=== PATIENT | female | born 1945 | race Two or more races ===

== ENCOUNTER 2016-04-14 17:20 | Inpatient (IN) | payer SELFPAY ==
[~2016-04-14] VITALS: Ht 165.1 cm; Wt 55.8 kg
[2016-04-14] MEDS ORDERED: ENOXAPARIN SOD 100 MG/1 ML SYRINGE SC ONE (19:00)
[2016-04-14 19:43] LABS: Basophils # (auto) 0.1 uL; Basophils % (auto) 0.5 % (0.0-2.0); Eosinophils # (auto) 0.1 uL; Eosinophils % (auto) 0.7 % (0.0-7.0); Hemoglobin 12.9 g/dL (12.2-16.2); Lymphocytes # (auto) 1.4 uL; Lymphocytes % (auto) 12.6 % (10.0-50.0); Mean Corpuscular Hemoglobin 29.8 pg (28.0-32.0); Mean Corpuscular Hgb Conc. 33.1 g/dL (32.0-36.0); Mean Platelet Volume 7.9 fL (7.4-10.4); Monocytes % (auto) 8.9 % (0.0-12.0); Neutrophils # (auto) 8.3 uL; Neutrophils % (auto) 77.3 % (37.0-80.0); Platelet Count (auto) 449 10^3/uL (140-450); Red Cell Distribution Width 12.8 % (11.6-16.0); White Blood Cell 10.7 10^3/uL (4.4-10.8)
[2016-04-14 20:00] LABS: BUN/Creatinine Ratio 21.7; Calcium 9.4 mg/dL (8.5-10.1)
[2016-04-14 20:13] LABS: INR 0.99 (0.9-1.15); Partial Thromboplastin Time 29.2 sec (22.64-33.71); Prothrombin Time 10.2 sec (9.37-12.3)
[2016-04-15] VITALS (7 sets, daily range): BP systolic 97–116; BP diastolic 52–72
[2016-04-15] MEDS ORDERED: TEMAZEPAM 15 MG CAP PO PRN
[2016-04-15] MEDS ORDERED: HYDROcodone-ACET 5/325MG TAB PO PRN
[2016-04-15] MEDS ORDERED: DOCUSATE SOD 100 MG CAP PO PRN
[2016-04-15] MEDS ORDERED: MORPHINE SULF INJ 2 MG/ML SYRINGE 1ML IV PRN
[2016-04-15] MEDS ORDERED: ACETAMINOPHEN 325 MG TAB PO PRN
[2016-04-15] MEDS ORDERED: ONDANSETRON HCL 4 MG/2 ML VIAL IV PRN
[2016-04-15] MEDS ORDERED: LEVO100T8 PO (01:51)
[2016-04-15] MEDS ORDERED: INFLUENZA QUAD 2016-2017 0.5 ML SYRG IM ONE (02:30)
[2016-04-15 05:19] LABS: Basophils # (auto) 0 uL; Basophils % (auto) 0.4 % (0.0-2.0); Eosinophils # (auto) 0.1 uL; Eosinophils % (auto) 1.2 % (0.0-7.0); Hematocrit 39.3 % (36.0-46.0); Hemoglobin 13.1 g/dL (12.2-16.2); Lymphocytes # (auto) 1.4 uL; Lymphocytes % (auto) 16.1 % (10.0-50.0); Mean Corpuscular Hemoglobin 29.7 pg (28.0-32.0); Mean Corpuscular Hgb Conc. 33.4 g/dL (32.0-36.0); Mean Corpuscular Volume 88.9 fL (80.0-100.0); Monocytes # (auto) 0.7 uL; Monocytes % (auto) 8.1 % (0.0-12.0); Neutrophils # (auto) 6.3 uL; Neutrophils % (auto) 74.2 % (37.0-80.0); Platelet Count (auto) 479 10^3/uL (140-450); Red Cell Distribution Width 12.7 % (11.6-16.0); White Blood Cell 8.5 10^3/uL (4.4-10.8)
[2016-04-15 05:43] LABS: Albumin 2.8 g/dL (3.4-5.0); BUN/Creatinine Ratio 22.6; Bilirubin, Total 0.5 mg/dL (0.2-1.0); Calcium 9.8 mg/dL (8.5-10.1); Potassium 4.5 mmol/L (3.5-5.1); Total Protein 6.4 g/dL (6.4-8.2)
[2016-04-15] MEDS: LEVOTHYROXINE SODIUM 25 MCG TAB PO SCH (06:15)
[2016-04-15] MEDS: ENOXAPARIN SOD 60 MG/0.6 ML SYRINGE SC SCH ×2 (07:55→19:51)
[2016-04-15] MEDS: FAMOTIDINE 20 MG TAB PO SCH ×2 (09:21→21:50)
[2016-04-15] MEDS ORDERED: WARFARIN SODIUM 2.5 MG TAB PO ONE (17:00)
[2016-04-16 04:48] VITALS: BP 90/56
[2016-04-16 05:46] VITALS: BP 107/69
[2016-04-16] MEDS: LEVOTHYROXINE SODIUM 25 MCG TAB PO SCH (06:04)
[2016-04-16 06:41] LABS: INR 1.06 (0.9-1.15); Partial Thromboplastin Time 29.7 sec (22.64-33.71); Prothrombin Time 10.9 sec (9.37-12.3)
[2016-04-16 08:54] VITALS: BP 105/68
[2016-04-16] MEDS: FAMOTIDINE 20 MG TAB PO SCH ×2 (11:58→22:02)
[2016-04-16] MEDS: ENOXAPARIN SOD 60 MG/0.6 ML SYRINGE SC SCH ×2 (11:58→20:30)
[2016-04-16 13:00] VITALS: BP 117/69
[2016-04-16 17:00] VITALS: BP 105/67
[2016-04-16] MEDS ORDERED: WARFARIN SODIUM 2.5 MG TAB PO ONE (17:00)
[2016-04-16 21:45] VITALS: BP 106/68
[2016-04-17 05:00] VITALS: BP 104/55
[2016-04-17] MEDS: LEVOTHYROXINE SODIUM 25 MCG TAB PO SCH (06:10)
[2016-04-17 06:14] LABS: Partial Thromboplastin Time 31.8 sec (22.64-33.71)
[2016-04-17 06:15] LABS: INR 1.33 (0.9-1.15); Prothrombin Time 13.7 sec (9.37-12.3)
[2016-04-17 09:00] VITALS: BP 112/71
[2016-04-17] MEDS: ENOXAPARIN SOD 60 MG/0.6 ML SYRINGE SC SCH ×2 (10:23→20:05)
[2016-04-17] MEDS: FAMOTIDINE 20 MG TAB PO SCH ×2 (10:24→22:15)
[2016-04-17 13:00] VITALS: BP 100/62
[2016-04-17 16:35] VITALS: BP 105/61
[2016-04-17] MEDS ORDERED: WARFARIN SODIUM 2.5 MG TAB PO ONE ×2 (17:00)
[2016-04-17] MEDS ORDERED: WARFARIN SODIUM 5 MG TAB PO ONE (17:00)
[2016-04-17 22:00] VITALS: BP 106/70
[2016-04-18 05:00] VITALS: BP 98/61
[2016-04-18 06:28] LABS: Basophils # (auto) 0.1 uL; Basophils % (auto) 0.8 % (0.0-2.0); Eosinophils # (auto) 0.1 uL; Eosinophils % (auto) 1.7 % (0.0-7.0); Hematocrit 39.6 % (36.0-46.0); Hemoglobin 13.1 g/dL (12.2-16.2); Lymphocytes # (auto) 1.2 uL; Lymphocytes % (auto) 16.3 % (10.0-50.0); Mean Corpuscular Hemoglobin 29.5 pg (28.0-32.0); Mean Corpuscular Hgb Conc. 33.2 g/dL (32.0-36.0); Mean Corpuscular Volume 88.9 fL (80.0-100.0); Mean Platelet Volume 7.6 fL (7.4-10.4); Monocytes # (auto) 0.6 uL; Monocytes % (auto) 8.4 % (0.0-12.0); Neutrophils # (auto) 5.6 uL; Neutrophils % (auto) 72.8 % (37.0-80.0); Platelet Count (auto) 595 10^3/uL (140-450); Red Cell Distribution Width 12.6 % (11.6-16.0); White Blood Cell 7.6 10^3/uL (4.4-10.8)
[2016-04-18] MEDS: LEVOTHYROXINE SODIUM 25 MCG TAB PO SCH (06:28)
[2016-04-18 07:03] LABS: INR 1.47 (0.9-1.15); Prothrombin Time 15.1 sec (9.37-12.3)
[2016-04-18 08:00] VITALS: BP 105/60
[2016-04-18] MEDS: ENOXAPARIN SOD 60 MG/0.6 ML SYRINGE SC SCH ×2 (09:17→19:52)
[2016-04-18] MEDS: FAMOTIDINE 20 MG TAB PO SCH ×2 (09:17→21:44)
[2016-04-18 13:00] VITALS: BP 100/54
[2016-04-18 14:46] LABS: Partial Thromboplastin Time 37.2 sec (22.64-33.71)
[2016-04-18 14:49] LABS: INR 1.39 (0.9-1.15); Prothrombin Time 14.3 sec (9.37-12.3)
[2016-04-18 16:50] VITALS: BP 104/63
[2016-04-18] MEDS ORDERED: WARFARIN SODIUM 2.5 MG TAB PO ONE (17:00)
[2016-04-18 22:00] VITALS: BP 102/60
[2016-04-19 05:00] VITALS: BP 94/63
[2016-04-19 05:52] LABS: Partial Thromboplastin Time 33.8 sec (22.64-33.71)
[2016-04-19 06:10] LABS: INR 1.6 (0.9-1.15); Prothrombin Time 16.5 sec (9.37-12.3)
[2016-04-19] MEDS: LEVOTHYROXINE SODIUM 25 MCG TAB PO SCH (06:42)
[2016-04-19] MEDS: ENOXAPARIN SOD 60 MG/0.6 ML SYRINGE SC SCH ×2 (08:52→20:30)
[2016-04-19 09:00] VITALS: BP 120/57
[2016-04-19] MEDS: FAMOTIDINE 20 MG TAB PO SCH ×2 (11:29→21:51)
[2016-04-19 13:06] VITALS: BP 110/71
[2016-04-19 15:48] LABS: INR 1.88 (0.9-1.15); Prothrombin Time 19.4 sec (9.37-12.3)
[2016-04-19] MEDS ORDERED: WARFARIN SODIUM 10 MG TAB PO ONE (17:00)
[2016-04-19 17:34] VITALS: BP 104/69
[2016-04-19 20:31] VITALS: BP 109/61
[2016-04-20 04:32] VITALS: BP 103/59
[2016-04-20] MEDS: LEVOTHYROXINE SODIUM 25 MCG TAB PO SCH (06:04)
[2016-04-20 06:13] LABS: INR 2.27 (0.9-1.15); Prothrombin Time 23.4 sec (9.37-12.3)
[2016-04-20 09:00] VITALS: BP 102/59
[2016-04-20] MEDS: ENOXAPARIN SOD 60 MG/0.6 ML SYRINGE SC SCH (09:57)
[2016-04-20] MEDS: FAMOTIDINE 20 MG TAB PO SCH (09:57)
[2016-04-20 13:00] VITALS: BP 103/61
[2016-04-20 15:47] VITALS: BP 103/61
[2016-04-20 17:00] VITALS: BP 106/65
[2016-04-21] MEDS ORDERED: WARFARIN SODIUM 2.5 MG TAB PO ONE (17:00)
== END 2016-04-20 17:57 | disposition home or self-care (01) | DRG 299 ==
LOC: ER 17:52 → OVERFLOW 17:53 → WEST WING 04-15 01:16
PROVIDERS: ADMIT Nurse Practitioner; ATTEND Internal Medicine Pulmonary Disease
DX: I82.402 Acute embolism and thrombosis of unspecified deep veins of left lower extremity (principal); E43 Unspecified severe protein-calorie malnutrition; E03.9 Hypothyroidism, unspecified; E78.5 Hyperlipidemia, unspecified; E11.9 Type 2 diabetes mellitus without complications; Z90.710 Acquired absence of both cervix and uterus; Z23 Encounter for immunization; Z90.49 Acquired absence of other specified parts of digestive tract; Z68.20 Body mass index [BMI] 20.0-20.9, adult
CPT/HCPCS: 36415; 80048; 80053; 85025; 85049; 85379; 85610; 85730; 87081; 93971; 94761; 96372